=== PATIENT | female | born 2000 | race Caucasian/White ===

== ENCOUNTER → 2022-10-22 | Emergency (ER) | payer OTHER ==
[~2022-10-22] VITALS: Ht 165.1 cm; Wt 99.3 kg
[~2022-10-22] MED LIST: DICLOFENAC POTA50 MG PO; ORPHENADRINE C100 MG PO
== END | disposition home or self-care (01) ==
LOC: ER 15:35
DX: M62.838 Other muscle spasm (principal); M62.830 Muscle spasm of back; R07.89 Other chest pain